=== PATIENT | male | born 1955 | race Caucasian/White ===

== ENCOUNTER 2018-04-22 08:18 | Outpatient (REF) | payer BC, SELFPAY ==
[2018-04-22 21:34] LABS: Anion Gap 9.5 mmol/L (3-11); BUN 17 mg/dL (7-18); CO2 26.5 mmol/L (21.0-32.0); Calcium 8.6 mg/dL (8.5-10.1); Chloride 106 mmol/L (98-107); Glucose 98 mg/dL (70-100); Potassium 4.2 mmol/L (3.5-5.1); Sodium 142 mmol/L (136-145)
== END 2018-04-22 08:19 ==
LOC: NCHCN 08:18
PROVIDERS: PCP Internal Medicine; Visit Provider Internal Medicine
DX: Z00.00 Encounter for general adult medical examination without abnormal findings (principal); R26.89 Other abnormalities of gait and mobility; H93.19 Tinnitus, unspecified ear; Z12.5 Encounter for screening for malignant neoplasm of prostate; Z80.42 Family history of malignant neoplasm of prostate
CPT/HCPCS: 80048; 84153

== ENCOUNTER 2020-07-12 20:01 | Outpatient (REF) | payer MEDICARE, BC, SELFPAY ==
[2020-07-12 21:26] LABS: ALT 23 U/L (16-63); AST 18 U/L (15-37); Albumin 4.1 g/dL (3.4-5.0); Alkaline Phosphatase 47 U/L (46-116); Anion Gap 9.5 mmol/L (3-11); BUN 16 mg/dL (7-18); Bilirubin, Total 0.6 mg/dL (0.2-1.0); CO2 25.5 mmol/L (21.0-32.0); CREATININE 1.31 mg/dL (0.70-1.30); Calcium 9.3 mg/dL (8.5-10.1); Calculated LDL 125 mg/dL (<100); Chloride 104 mmol/L (98-107); Cholesterol 184 mg/dL (<200); Estimated GFR 54.58 (mL/min/1.73m2); Glucose 104 mg/dL (74-106); HDL Cholesterol 38 mg/dL (40-60); Potassium 4.5 mmol/L (3.5-5.1); Sodium 139 mmol/L (136-145); Total Protein 7.3 g/dL (6.4-8.2); Triglyceride 107 mg/dL (<150)
== END 2020-07-12 20:21 ==
LOC: NCHCN 20:01
PROVIDERS: PCP Internal Medicine; Visit Provider Internal Medicine
DX: E78.5 Hyperlipidemia, unspecified (principal); E66.9 Obesity, unspecified
CPT/HCPCS: 80053; 80061

== ENCOUNTER 2021-06-30 15:55 | Outpatient (REF) | payer MEDICARE, BC, SELFPAY ==
[2021-06-30 17:42] LABS: Anion Gap 9.9 mmol/L (3-11); BUN 21 mg/dL (7-18); CO2 28.1 mmol/L (21.0-32.0); CREATININE 1.3 mg/dL (0.70-1.30); Calcium 9.4 mg/dL (8.5-10.1); Calculated LDL 125 mg/dL (<100); Chloride 105 mmol/L (98-107); Cholesterol 182 mg/dL (<200); Glucose 106 mg/dL (74-106); HDL Cholesterol 43 mg/dL (40-60); Potassium 4.3 mmol/L (3.5-5.1); Sodium 143 mmol/L (136-145); Triglyceride 73 mg/dL (<150)
[2021-07-03 09:32] LABS: PSA, Screening 1.9 ng/mL (0.0-4.5)
== END 2021-06-30 15:56 | disposition home or self-care (01) ==
LOC: NCHCN 15:55
PROVIDERS: PCP Internal Medicine; Visit Provider Internal Medicine
DX: E78.5 Hyperlipidemia, unspecified (principal); E66.9 Obesity, unspecified; Z12.5 Encounter for screening for malignant neoplasm of prostate
CPT/HCPCS: 80048; 80061; 84153

== ENCOUNTER 2022-01-01 09:17 | Outpatient (REF) | payer MEDICARE, SELFPAY ==
[2022-01-01 17:11] LABS: Calculated LDL 74 mg/dL (<100); Cholesterol 124 mg/dL (<200); Glucose 115 mg/dL (74-106); HDL Cholesterol 38 mg/dL (40-60); Triglyceride 60 mg/dL (<150)
== END 2022-01-01 09:18 | disposition home or self-care (01) ==
LOC: NCHCN 09:17
PROVIDERS: PCP Internal Medicine; Visit Provider Internal Medicine
DX: E78.5 Hyperlipidemia, unspecified (principal); R73.01 Impaired fasting glucose
CPT/HCPCS: 80061; 82947

== ENCOUNTER 2022-07-06 15:55 | Outpatient (REF) | payer MEDICARE, SELFPAY ==
[2022-07-06 16:37] LABS: BUN 16 mg/dL (7-18); CREATININE 1.3 mg/dL (0.70-1.30); Calcium 9.4 mg/dL (8.5-10.1); Chloride 105 mmol/L (98-107); Estimated GFR 59.47 (mL/min/1.73m2); Glucose 119 mg/dL (74-106); Potassium 4.5 mmol/L (3.5-5.1); Sodium 142 mmol/L (136-145)
== END 2022-07-06 15:56 | disposition home or self-care (01) ==
LOC: NCHCN 15:55
PROVIDERS: PCP Internal Medicine; Visit Provider Internal Medicine
DX: E78.5 Hyperlipidemia, unspecified (principal); E66.9 Obesity, unspecified; R73.01 Impaired fasting glucose; G47.33 Obstructive sleep apnea (adult) (pediatric)
CPT/HCPCS: 80048

== ENCOUNTER 2023-07-15 11:37 | Outpatient (REF) | payer MEDICARE, SELFPAY ==
[2023-07-15 16:00] LABS: ALT 25 U/L (16-63); AST 25 U/L (15-37); Alkaline Phosphatase 46 U/L (46-116); Anion Gap 8.6 mmol/L (3-11); BUN 19 mg/dL (7-18); Bilirubin, Total 0.7 mg/dL (0.2-1.0); CO2 26.4 mmol/L (21.0-32.0); CREATININE 1.1 mg/dL (0.70-1.30); Calcium 9.3 mg/dL (8.5-10.1); Calculated LDL 63 mg/dL (<100); Chloride 107 mmol/L (98-107); Cholesterol 116 mg/dL (<200); Estimated GFR 72.22 (mL/min/1.73m2); Glucose 113 mg/dL (74-106); HDL Cholesterol 39 mg/dL (40-60); Potassium 4.5 mmol/L (3.5-5.1); Sodium 142 mmol/L (136-145); Total Protein 7.5 g/dL (6.4-8.2); Triglyceride 71 mg/dL (<150)
[2023-07-15 16:26] LABS: Hemoglobin A1C 5.8 % (<5.7)
[2023-07-15 22:23] LABS: PSA, Screening 1.7 ng/mL (<=6.5)
== END 2023-07-15 11:38 | disposition home or self-care (01) ==
LOC: NCHCN 11:37
PROVIDERS: PCP Internal Medicine; Visit Provider Internal Medicine
DX: E66.9 Obesity, unspecified (principal); R73.01 Impaired fasting glucose; E78.5 Hyperlipidemia, unspecified; Z12.5 Encounter for screening for malignant neoplasm of prostate
CPT/HCPCS: 80053; 80061; 84153; 83036

== ENCOUNTER 2024-07-20 09:50 | Outpatient (REF) | payer MEDICARE, SELFPAY ==
--- OUTSIDE RECORDS SUMMARY | 2024-07-20 09:52 | XMS_ITS | Clinical Summary ---
[place] [address] Care Team Providers Care Drum Printer Name Role Phone Unknown Primary Care Provider Unavailabl e Encounters Date Type Department Care Team Description 06/04/[address] [facility] in [address] [address] Norberto Velasco PA from Last 3 Months Social History Tobacco Use Types Packs/Day Years Used Date Smoking Tobacco: Never Assessed Sex and Gender Information Value Date Recorded Sex Assigned at Not on file Gender Identity Not on file Sexual Orientation Not on file Plan of Treatment Health Maintenance Due Date Last Done Comments CT Colonography 1955 Colonoscopy 1955 Colorectal Cancer Screening 1955 FIT DNA 1955 FIT 1955 Sigmoidoscopy (10 year) with FIT yearly 1955 Sigmoidoscopy 1955 Hepatitis C Screening 1971 Lipid Screening 1971 Tetanus/Diphtheria/Pertussis Vaccines (1 - Tdap) 05/29 Zoster vaccine (1 of 2) 2003 Advance Directive 2008 Pneumoccocal Vaccine: 65+ (1 of 1 - PCV) 2018 Covid-19 Vaccine (1 - 2022-24 season) 2024 Influenza (Flu) vaccine (1 o f 1 - Influenza standard series) 05/17/2024 Procedures Procedure Name Priority Date/Time Associated Diagnosis Comments XR KNEE 4 OR MORE VIEWS RIGHT Routine 06/04/2024 9:39 AM EDT from Last 3 Months Results * XR Knee 4 or more views Right (06/04/2024 9:39 AM EDT) PT CLASS O DH RAD ADMITDTTM [id number] [facility] PT RAD MD INFO [id number]^BETINA^ NORBERTO RAD EXAM DESC XKN4R^XR KNEE 4V RT^RIS [facility] WORKSTATION ID [id number] [facility] Anatomical Region Laterality Modality Knee Right Radiographic Li ging Impressions 06/05/2024 9:34 AM EDT Early osteoarthritis. Thank you for letting us participate in the care of this patient. ??If you are a health care provider and have any questions regarding this report, please contact the number below. ??For patients who have questions please contact the health rn primary care that requested your imaging first. ? Narrative 06/05/2024 9:34 AM EDT EXAMINATION: XR KNEE 4V RT CLINICAL HISTORY: REASON: KNEE PAIN, RIGHT ADD'L INFO: WB TECHNIQUE: 4 views RIGHT knee COMPARISON: None FINDINGS: No acute osseous finding. No significant soft tissue abnormality. There is minimal joint space narrowing with small marginal osteophytes. Procedure Note Clovis Angulo MD - 06/05/2024 EXAMINATION: XR KNEE 4V RT CLINICAL HISTORY: REASON: KNEE PAIN, RIGHT ADD'L INFO: WB TECHNIQUE: 4 views RIGHT knee COMPARISON: None FINDINGS: No acute osseous finding. No significant soft tissue abnormality. There is minimal joint space narrowing with small marginal osteophytes. IMPRESSION Early osteoarthritis. Thank you for letting us participate in the care of this patient. If youare a health care provider and have any questions regarding this report,please contact the number below. For patients who have questions please contactthe health rn primary care that requested your imaging first. Norberto HARTMAN IMG DX ORDERABLES from Last 3 Months Care Teams Drum Printer Relationship Specialty Start Date End Date Unknown None PCP - General 08/08/10
--- OUTSIDE RECORDS SUMMARY | 2024-07-20 09:52 | XMS_ITS ---
Author Organization Unknown Address [address] [place] [phone] Phone Care Team Providers Care Prescription Eyeglass Maker Name Role Phone BETINA THORNTON Attending Unavailable LAZARO Leos Primary Unavailable Results XR KNEE 4V RT* - Completed: 06/04/2024 09:39 LOINC: [facility] [place], [place] [address] RADIOLOGY OPTICAL EFFECTS LAYOUT PERSON REPORT Patient Name: PIPO VARNER MRN: Sex: : Age: [id number] M [id number] Account: Accession: Admit: StayType: [id number] 06/04/2024 O Ordered: Order ID: Submitted: Ordering Provider: 06/04/2024 09:31 [id number] NORBERTO MOFFETT Completed: Technologist: Resulted: 06/04/2024 09:34 06/05/2024 09:34 EXAMINATION: XR KNEE 4V RT CLINICAL HISTORY: REASON: KNEE PAIN, RIGHT ADD'L INFO: WB TECHNIQUE: 4 views RIGHT knee COMPARISON: None FINDINGS: No acute osseous finding. No significant soft tissue abnormality. There is minimal joint space narrowing with small marginal osteophytes. IMPRESSION: Early osteoarthritis. Thank you for letting us participate in the care of this patient. If you are a health care provider and have any questions regarding this report, please contact the number below. For patients who have questions please contact the health manager primary care that requested your imaging first. Social History Type Status Start Date End Date Code Code Syst em Smoking History Never smoker (Never Smoked) [id number] SNOMED CT Sex Male Hospital Discharge Instructions Should you have any questions prior to discharge, please contact a member of your healthcare team. If you have left the hospital and have any questions, please contact your primary care physician. Reason For Referral No Data Found Plan of Treatment No Data Found Encounters Encounter Diagnosis Start Date Code Code Sys tem Idiopathic osteoarthritis 06/04/2024 [id number] SN OMED-CT Personal Care Team Section Performer Name Performer Role Active Date Inactive Da te
--- OUTSIDE RECORDS SUMMARY | 2024-07-20 09:52 | XMS_ITS ---
Author Organization Unknown Address [address] [place] [phone] Phone Care Team Providers Care Psychodramatist Name Role Phone ERI Dinh Attending Unavailable FRANCI Hilario Primary Unavailable Results XR KNEE 4V LT* - Completed: 04/23/2023 13:15 [facility] [place], [place] [address] PACS MOLECULAR BIOLOGY PROFESSOR REPORT Patient Name: PIPO VARNER MRN: Sex: : Age: [id number] M [id number] Account: Accession: Admit: StayType: [id number] 04/23/2023 CLINIC Ordered: Order ID: Submitted: Ordering Provider: 04/23/2023 08:45 [id number] LA PAREKH Completed: Technologist: Resulted: 04/23/2023 13:15 BUSTER 04/23/2023 13:50 Study Description: XR KNEE 4V LT Study Reason: Pain Technique: 2D digital imaging was performed. 4 images were obtained. COMPARISON: None FINDINGS: Bones: No acute fractures present. No bony destructive lesion is seen. Joints: No dislocation is present. No joint effusion is seen. The joint spaces are maintained. There is mild periarticular spurring. Soft tissues: Unremarkable. IMPRESSION: No acute abnormality. Mild degenerative changes Report Digitally Signed by Alycia John on 04/23/2023 01:50 PM EDT Social History Type Status Start Date End Date Code Code Syst em Smoking History Never smoker (Never Smoked) [id number] SNOMED CT Sex Male Hospital Discharge Instructions Should you have any questions prior to discharge, please contact a member of your healthcare team. If you have left the hospital and have any questions, please contact your primary care physician. Reason For Referral No Data Found Plan of Treatment No Data Found Encounters Encounter Diagnosis Start Date Code Code Sys tem Idiopathic osteoarthritis 04/23/2023 [id number] SN OMED-CT Personal Care Team Section Performer Name Performer Role Active Date Inactive Da te
--- OUTSIDE RECORDS SUMMARY | 2024-07-20 09:52 | XMS_ITS | Encounter Summary ---
Author Organization [facility] [place] [address] Care Team Providers Care Washing Tub Operator Name Role Phone Unknown Primary Care Provider Unavailabl e Encounter Details Date Type Department Care Team (Late st Contact Info) Description 06/04/2024 Interpretation Only [facility] in [facility] [address] [place] [address] Norberto Velasco PA [address] [place], [place] [address] Social History Tobacco Use Types Packs/Day Years Used Date Smoking Tobacco: Never Assessed Sex and Gender Information Value Date Recorded Sex Assigned at Not on file Gender Identity Not on file Sexual Orientation Not on file documented as of this encounter Plan of Treatment Not on file documented as of this encounter Procedures Procedure Name Priority Date/Time Associated Diagnosis Comments XR KNEE 4 OR MORE VIEWS RIGHT Routine 06/04/2024 9:39 AM EDT documented in this encounter Results * XR Knee 4 or more views Right (06/04/2024 9:39 AM EDT) PT CLASS O RAD ADMITDTTM [id number] RAD PT RAD MD INFO [id number]^BETINA^ NORBERTO RAD EXAM DESC XKN4R^XR KNEE 4V RT^RIS [facility] WORKSTATION ID [id number] RAD Anatomical Region Laterality Modality Knee Right Radiographic Li ging Impressions 06/05/2024 9:34 AM EDT Early osteoarthritis. Thank you for letting us participate in the care of this patient. ??If you are a health care provider and have any questions regarding this report, please contact the number below. ??For patients who have questions please contact the health career technical education teacher that requested your imaging first. ? Electronically signed by: Clovis Angulo MD, [facility] ([phone]), at 06/05/2024 9:34 AM Narrative 06/05/2024 9:34 AM EDT EXAMINATION: XR [...] patients who have questions please contactthe health career technical education teacher that requested your imaging first. Electronically signed by: Clovis Angulo MD, [facility]([phone]), at 06/05/2024 9:34 AM Norberto Betina HARTMAN IMVern DX ORDERABLES documented in this encounter Visit Diagnoses Not on filedocumented in this encounter Care Teams Washing Tub Operator Relationship Specialty Start Date End Date Unknown None PCP - General 08/08/10 documented as of this encounter
--- OUTSIDE RECORDS SUMMARY | 2024-07-20 09:52 | XMS_ITS | Clinical Summary ---
Author Organization [facility] Address [address] [place] [address] Care Team Providers Care Superintendent Seed Mill Name Role Phone Linda Do Primary Care Provider [phone] Allergies No known active allergies Medications Medication Sig Dispensed Refills Start Date End Date Status tadalafiL (CIALIS) 5 mg tablet Take 5 mg by mouth daily. Active TAMSulosin (FLOMAX) 0.4 mg capsuleIndications:roxanna gn prostatic hyperplasia with lower urinary tract sx Take 0.4 mg by mouth daily. Active pravastatin (PRAVACHOL) 40 mg tabletIndications:hyper cholesterolemia Take 40 mg by mouth daily. Active Active Problems Problem Noted Date Diagnosed Date Asymmetrical left sensorineural hearing loss Encounters Date Type Department Care Team Description 05/08/2024 7:39 EDT - 05/08/2024 12:47 EDT Emergency [facility] Emergency Department [address] [place] [address] Elliott Mancuso MD Acute pain of right knee (Primary Dx) Discharge Disposition: Home or Self Care from Last 3 Months Surgical History Surgery Date Site/Laterality Comments CHOLECYSTECTOMY PILONIDAL CYST EXCISION 09/16/1976 - 09/15/1977 Medical History Medical History Date Comments Colon polyp Family History Medical History Relation Comments Heart Disease Father Heart Disease Maternal Grandmother Heart Disease Mother Relation Status Comments Father Maternal Grandmother Mother Social History Tobacco Use Types Packs/Day Years Used Date Smoking Tobacco: Former Cigarettes 0.5 5 0 10/12/1970 - 10/12/1975 Tobacco Cessation:Counseling Given: Not Answered Alcohol Use Standard Drinks/Week Comments No 0 (1 standard drink = 0.6 oz pur e alcohol) Sex and Gender Information Value Date Recorded Sex Assigned at Not on file Gender Identity Male 07/16/2022 15:14 EDT Sexual Orientation Not on file Obstetrics History Last Filed Vital Signs Vital Sign Reading Time Taken Comments Blood Pressure 133/93 05/08/2024 1224 EDT Pulse 54 05/08/2024 0744 EDT Temperature 36.8 ??C (98.3 ??F) 05/08/2024 0952 EDT Respiratory Rate 16 05/08/2024 1224 EDT Oxygen Saturation 98% 05/08/2024 1224 EDT Inhaled Oxygen Concentration - - Weight 123.8 kg (273 lb) 08/15/2022 0958 EST Height 170.2 cm (5' 7) 08/15/2022 0958 EST Body Mass Index 42.76 08/15/2022 0958 EST Plan of Treatment Health Maintenance Due Date Last Done Comments Hepatitis C Screen 1955 RSV Immunization ( o r 60+ Years) (1 - 1-dose 60+ series) 2013 Fall Risk Screening 2018 COVID-19 Vaccine (2022- season) 2024 Colonoscopy (Colon Cancer Screening) Discontinued 07/19 Colorectal Cancer Screening Discontinued Cologuard (Colon Cancer Screening) Discontinued FIT Test (Colon Cancer Screening) Discontinued Sigmoidoscopy (Colon Cancer Screening) Discontinued Procedures Procedure Name Priority Date/Time Associated Diagnosis Comments ANAPLASMA AND BABESIA TESTING BY PCR Routine 05/08/2024 9:46 EDT XR KNEE RIGHT 4 OR MORE VIEWS STAT 05/08/2024 8:55 EDT LYME AB SCREEN, IGG AND IGM STAT 05/08/2024 8:31 EDT C REACTIVE PROTEIN STAT 05/08/2024 8: 31 EDT COMPREHENSIVE METABOLIC PANEL (CMP) STAT 05/08/2024 8:31 EDT COMPLETE BLOOD COUNT AND DIFFERENTIAL STAT 05/08/2024 8:31 EDT COLONOSCOPY Routine 08/15/2022 10:30 EST Personal history of colonic polyps from Last 3 Months or Most Recently Relevant to Health Maintenance Results * ANAPLASMA AND BABESIA TESTING BY PCR (05/08/2024 9:46 EDT) Anaplasma phagocytophilum Negative Negative 05/09/2024 11:16 EDT [facility] Babesia Species Negative Negative 11:16 EDT [facility] Blood VENOUS BLOOD / Unknown Venipuncture / Unknown 05/08/2024 9:46 EDT 05/08/2024 9:49 EDT Narrative [facility] - 05/09/2024 11:16 EDT This test was developed and its performance characteristics determined by [facility]. It has not been cleared or approved by the US Food and Drug Administration. FDA does not require this test to go through premarket FDA review. This test is used for clinical purposes. It should not be regarded as investigational or research. This laboratory is certified under the Clinical Laboratory Improvement Amendments (CLIA) as qualified to perform high complexity clinical laboratory testing. Elliott Mancuso MD CHEMISTRY & BLOOD GA S ORDERABLES [facility] [address] [place] [address] * XR KNEE RIGHT 4 OR MORE VIEWS (05/08/2024 8:55 EDT) Anatomical Region Laterality Modality Lower Extremities Right Computed Radio graphy 05/08/2024 9:06 EDT Impressions 05/08/2024 9:06 EDT 1. No acute fracture. 2. Mild knee arthrosis. 3. Findings of prior [place]-Schlatter's disease. [id number] Narrative 05/08/2024 9:06 EDT XR KNEE RIGHT 4 OR MORE VIEWS ?? Signs and Symptoms/Comments: ??right knee pain Comparison: None FINDINGS: Right knee: 4 views. Bones: No acute fracture or malalignment. Degenerative changes: Mild narrowing of the medial tibiofemoral compartment joint space. Suspect mild patellofemoral narrowing. Chronic irregularity of the tibial tuberosity, compatible with remote [place]-Schlatter's disease. No significant knee joint effusion. Soft tissues: Unremarkable. Resulting Agency Comment [id number] Procedure Note Chester Rodríguez MD - 05/08/2024 XR KNEE RIGHT 4 OR MORE VIEWS Signs and Symptoms/Comments: right knee pain Comparison: None FINDINGS: Right knee: 4 views. Bones: No acute fracture or malalignment. Degenerative changes: Mild narrowing of the medial tibiofemoralcompartment joint space. Suspect mild patellofemoral narrowing. Chronicirregularity of the tibial tuberosity, compatible with remote[place]sg[place]-Schlatter's disease. No significant knee joint effusion. Soft tissues: Unremarkable. IMPRESSION 1. No acute fracture. 2. Mild knee arthrosis. 3. Findings of prior [place]-Schlatter's disease. [id number] Ana Pedraza NP IMG DIAGNOSTIC IMAG ING ORDERABLES * LYME AB SCREEN, IGG AND IGM (05/08/2024 8:31 EDT) Pathologist [facility] Lyme Antibody, IgG Negative Negative 05/08/2024 11:03 EDT [facility] Lyme Antibody, IgM Negative Negative 05/08/2024 11:03 EDT [facility] Blood VENOUS BLOOD / Unknown Venipuncture / Unknown 05/08/2024 8:31 EDT 05/08/2024 8:38 EDT Ana Pedraza NP IMMUNOLOGY AND SERO LOGY ORDERABLES [facility] [address] [place] [address] * (ABNORMAL) COMPLETE BLOOD COUNT AND DIFFERENTIAL (05/08/2024 8:31 EDT) Pathologist [facility] WBC 7.24 4.00 - 10.40 K/cmm 05/08/2024 8:49 EDT [facility] RBC 5.50 4.36 - 5.78 M/cmm 05/08/2024 8:49 [facility] Hemoglobin 15.3 13.8 - 17.3 g/dL 05/08/2024 8:49 [facility] HCT 46.8 39.5 - 50.2 % 05/08/2024 8:49 [facility] MCV 85 81 - 95 fL 05/08/2024 8:49 [facility] MCH 27.8 27.6 - 33.0 pg 05/08/2024 8:49 [facility] MCHC 32.7(L) 32.8 - 36.4 g/dL 05/08/2024 8:49 [facility] RDW-CV 13.6 <14.2 % 05/08/2024 8:49 [facility] RDW-SD 42.6 <46.0 fl 05/08/2024 8:49 [facility] PLT 217 141 - 377 K/cmm 05/08/2024 8:49 [facility] MPV 8.9(L) 9.5 - 12.7 fL 05/08/2024 8:49 [facility] % Neutrophils 71.1 % 05/08/2024 8:49 [facility] % Lymphocytes 19.6 % 05/08/2024 8:49 [facility] % Monocytes 7.2 % 05/08/2024 8:49 [facility] % Eosinophils 1.1 % 05/08/2024 8:49 [facility] % Basophils 0.7 % 05/08/2024 8:49 [facility] % Immature Grans 0.3 <0.9 % 05/08/20 8:49 [facility] Absolute Neutrophils 5.15 2.20 - 8.85 K/cmm 05/08/2024 8:49 [facility] Absolute Lymphocytes 1.42 1.09 - 3.30 K/cmm 05/08/2024 8:49 [facility] Absolute Monocytes 0.52 0.10 - 0.80 K/cmm 05/08/2024 8:49 [facility] Absolute Eosinophils 0.08 0.03 - 0.61 K/cmm 05/08/2024 8:49 [facility] ABS Basophils 0.05 0.01 - 0.11 K/cmm 05/08/2024 8:49 [facility] Absolute Immature Grans 0.02 0.00 - 0.06 K/cmm 05/08/2024 8:49 [facility] Type of Differential: Auto 05/08/2024 8:49 [facility] Blood VENOUS BLOOD / Unknown Venipuncture / Unknown 05/08/2024 8:31 EDT 05/08/2024 8:38 EDT Ana L Concettanoir TESTS SUPERINTENDENT PACKAGES & DNA PROB E ORDERABLES Performing Organization Address City/[facility]/ZIP Co de Phone Number [facility] [address] [place] [address] * C REACTIVE PROTEIN (05/08/2024 8:31 EDT) [facility] C-Reactive Protein 6.2 <10.0 mg/L 05/08/2024 9:08 [facility] Blood VENOUS BLOOD / Unknown Venipuncture / Unknown 05/08/2024 8:31 EDT 05/08/2024 8:38 EDT Ana L Cotnoir TESTS SUPERINTENDENT CHEMISTRY & BLOOD G ORDERABLES Performing Organization Address City/[facility]/ZIP Co de Phone Number [facility] [address] [place] [address] * (ABNORMAL) COMPREHENSIVE METABOLIC PANEL (CMP) (05/08/2024 8:31 EDT) Pathologist [facility] Sodium 141 136 - 145 mmol/L 05/08/2024 9:08 [facility] Potassium 4.6 3.5 - 5.0 mmol/L 05/08/2024 9:08 [facility] Chloride 107 96 - 110 mmol/L 05/08/2024 9:08 [facility] CO2 Total 25 22 - 32 mmol/L 05/08/2024 9:08 [facility] Glucose 126(H) 70 - 99 mg/dl 05/08/2024 9:08 [facility] BUN 17 10 - 26 mg/dL 05/08/2024 9:08 [facility] Creatinine 0.94 0.66 - 1.25 mg/dL 05/08/2024 9:08 [facility] eGFR 87 >60 mL/min/1.7 3m2 05/08/2024 9:08 [facility] Total Protein 6.7 6.3 - 8.2 g/dL 05/08/2024 9:08 [facility] Albumin 4.0 3.4 - 4.9 g/dL 05/08/2024 9:08 [facility] Alkaline Phosphatase 46 38 - 126 U/L 05/08/2024 9:08 [facility] AST 25 15 - 46 U/L 05/08/2024 9:08 [facility] ALT 17 <50 U/L 05/08/2024 9:08 [facility] Bilirubin, Total 0.6 <1.4 mg/dL 05/08/20 9:08 [facility] Calcium 9.1 8.5 - 10.5 mg/dL 05/08/2024 9:08 [facility] Albumin/Globulin Ratio 1.5 1.0 - 2.5 05/08/2024 9:08 [facility] Anion Gap 9 5 - 14 mmol/L 05/08/2024 9:08 [facility] Blood VENOUS BLOOD / Unknown Venipuncture / Unknown 05/08/2024 8:31 EDT 05/08/2024 8:38 EDT Ana Gorman Osmanrama TESTS SUPERINTENDENT CHEMISTRY & BLOOD G ORDERABLES [facility] [address] [place] [address] * COLONOSCOPY (08/15/2022 10:30 EST) Anatomical Region Laterality Modality Endoscopy Narrative 08/15/2022 10:30 EST [facility] ?? [address] [place] [address] ?? Patient Name ?GAGE VARNER Date of ?1955 Record Number ?[id number] Date/Time of Procedure ?08/15/2022, 10:30:00 AM Endoscopist ?Brenton Morgan ?? Collections Rep ? Referring Physician(s) ?? Max Carnes Dr. Anesthesiologist ? Procedure Performed: COLONOSCOPY Indications for Exam: History of colon polyps Instruments: ? [facility]-[id number] ([id number]) Medications: ?Fentanyl 75 mcg, Versed ??5 mg I was in continuous face to face attendance during the administration of moderate sedation services that were monitored by an independent trained observer who had no other duties during the procedure. ? Visualization: ? Good ?Tolerance: Good ?Complications: None ? Extent of Exam: ?Cecum ? Limitations: ?? Procedure Technique: Informed consent was obtained from the patient after explaining all the risks (perforation, bleeding, infection, and adverse effects to the medicine), benefits and alternatives to the procedure which the patient appeared to understand and so stated. ??The patient was connected to the monitoring devices and placed in a left lateral position. Continuous oxygen was provided with a nasal cannula and IV medicine administered through an indwelling cannula. After adequate sedation was achieved, the patient was intubated and the scope advanced under direct visualization to the terminal ileum. The terminal ileum was identified by visual landmarks .The scope was subsequently removed slowly while carefully examining the color, texture, anatomy, and integrity of the mucosa during withdrawal. I personally was in continuous [id number]-ab-qloa attendance with the patient during the administration of the moderate sedation and supervised the moderate sedation services that were monitored by an independent trained observer who had no other duties during the procedure. The patient was subsequently transferred to the recovery area in satisfactory condition. Findings: Normal colon to the Cecum. No polyps or cancer noted. Endoscopic Diagnosis: Normal screening colonoscopy Recommendations: Screening colonoscopy in 5 years. Sedation Start: 11:25:12 AM ?? Sedation End: 11:43:12 AM Signature: Brenton Morgan M.D., F.A.C.G This note was electronically signed on 08/15/2022 11:44:52 AM By Brenton Morgan M.D., Loida.A.CMakG Linda Do GI PROCEDURE ORDERAB LES from Last 3 Months or Most Recently Relevant to Health Maintenance Care Teams Superintendent Seed Mill Relationship Specialty Start Date End Date Linda Do [address] [facility] [place] [address] PCP - General Internal Medicine - Primary Care 05/08/24
--- OUTSIDE RECORDS SUMMARY | 2024-07-20 09:52 | XMS_ITS ---
Author Organization Unknown ALLERGIES AND ADVERSE REACTIONS No information ASSESSMENT No information CHIEF COMPLAINT No information MEDICATIONS No information OBJECTIVE DATA No information PHYSICAL EXAMINATION No information TREATMENT PLAN Planned Care Start Date Provider Encounter for Check-up [id number] PROBLEMS No information RESULTS No information REVIEW OF SYSTEMS No information SUBJECTIVE DATA No information VITAL SIGNS No information
--- OUTSIDE RECORDS SUMMARY | 2024-07-20 09:53 | XMS_ITS | Encounter Summary ---
Author Organization [facility] Address [address] [place] [address] Care Team Providers Care Hotel Supplies Salesperson Name Role Phone Max Carnes MD Primary Care Provider Unav ailable Reason for Visit * Reason Comments Tinnitus left side at times f eels like pressure. mild discomfort symptoms started with cold in the head of november cold symptoms disappared but tinnitus stayed was a sudden onset. * Consult (Routine) - Closed Specialty Diagnoses / Procedures Referred By Contjuan jose echavarria Referred To Contact Otolaryngology Diagnoses Unspecified eustachian tube disorder, bilateral Max Carnes MD [address] [place] [address] Terry Jung MD [address] [place] [phone] Referral ID Status Reason Start Date Expiration Date Visits Re quested Visits Authorized [id number] Closed 1 1 Encounter Details Date Type Department Care Team (Latest Contact Info) Description 01/10/2017 10:30 EDT Office Visit [facility] ENT [facility] [place] [address] [place] [address] Terry Jung MD [address] [place] [phone] Subjective tinnitus, left (Primary Dx); Asymmetrical left sensorineural hearing loss Social History Tobacco Use Types Packs/Day Years Used Date Smoking Tobacco: Former Cigarettes 0.5 5 0 10/12/1970 - 10/12/1975 Alcohol Use Standard Drinks/Week Comments No 0 (1 standard drink = 0.6 oz pur e alcohol) Sex and Gender Information Value Date Recorded Sex Assigned at Not on file Gender Identity Male 07/16/2022 15:14 EDT Sexual Orientation Not on file documented as of this encounter Last Filed Vital Signs Vital Sign Reading Time Taken Comments Blood Pressure 131/87 01/10/2017 1016 EDT Pulse 67 01/10/2017 1016 EDT Temperature - - Respiratory Rate - - Oxygen Saturation - - Inhaled Oxygen Concentration - - Weight 113.4 kg (250 lb) 01/10/2017 1016 EDT Height 175.3 cm (5' 9) 01/10/2017 1016 EDT Body Mass Index 36.92 01/10/2017 1016 EDT documented in this encounter Progress Notes * Terry Jung MD - 01/10/2017 1030 EDT This is a consult from Max Carnes MD, for evaluation of tinnitus. HISTORY OF PRESENT ILLNESS: This is a 61-year-old male with a history of bilateral tinnitus mainly on the left that began after a head cold in November. The cold resolved, but he continues to have tinnitus and feeling of pressure in the left ear. His symptoms are of mild severity, constant, no known modifying factors, has occasional popping and crackling of the left ear. No vertigo, pain, drainage or other ear symptoms. His symptoms are of mild severity. It does not affect sleep, no increased social stress. Denies bruxism. Caffeine use is one diet soda per day. PAST MEDICAL HISTORY: The patient denies other medical illnesses. PREVIOUS SURGERIES: Include cholecystectomy. FAMILY HISTORY: Significant for heart disease. SOCIAL HISTORY: The patient is a former smoker, quit in 1975. He has no known drug allergies. CURRENT MEDICATIONS: Include Cialis. REVIEW OF SYSTEMS: Otherwise negative for a complete review of all systems. PHYSICAL EXAM: General: Well-developed, well-nourished, alert, oriented and cooperative adult male in no acute distress. Normal voice. Vital signs: Height 69 inches. Weight 250. Blood pressure 131/87, pulse 67. No reportable pain. The face is normal without lesions. No tenderness. Salivary glands are normal. Facial strength is symmetric. Eye exam is normal. Ears: External ears are normal. Canals are clear. The tympanic membranes are normal. Normal bilateral otomicroscopy. An audiogram was performed which reveals a bilateral high- frequency sloping sensorineural hearing loss, slightly asymmetric, worse in the left ear. SRTs are 10 decibels bilaterally. Excellent word discrimination and normalimpedance. Nose: Nasal dorsum is midline, the airway is patent. Oral cavity and posterior pharynx is clear. Neck: No pathologic lymphadenopathy. Trachea is midline. Thyroid is normal. Chest is clear to auscultation. Heart: Regular rate and rhythm. IMPRESSION: Mild bilateral high-frequency sensorineural hearing loss, asymmetric, worse in the leftear with associated tinnitus, possibly related to a viral respiratory tract infection, Cialis has also been associated with sudden hearing loss and tinnitus. PLAN: Tinnitus instruction materials were given to the patient and discussed in detail. For the asymmetric sensorineural hearing loss, further workup including repeat audiogram, audiometric brainstemevoked potential testing, and MRI scan were discussed with the patient. He has opted for a repeat audiogram and this will be scheduled in 1 year or p.r.n. cc: Max Carnes MD documented in this encounter Plan of Treatment Not on file documented as of this encounter Procedures Procedure Name Priority Date/Time Associated Diagnosis Comments PROCEDURE REPORTS - SCANNED 01/11/2017 15:21 EDT documented in this encounter Results * PROCEDURE REPORTS - SCANNED (01/11/2017 15:21 EDT) 01/11/2017 15:2 1 EDT Scan 2 Sewage Plant Operator PROCEDURE/MINOR GUERITA GICAL ORDERABLES documented in this encounter Visit Diagnoses Diagnosis Subjective tinnitus, left- Primary Asymmetrical left sensorineural hearing loss Sensorineural hearing loss, asymmetrical documented in this encounter Care Teams Hotel Supplies Salesperson Relationship Specialty Start Date End Date Max Carnes MD PCP - General 07/26/15 05/07/24 documented as of this encounter
--- OUTSIDE RECORDS SUMMARY | 2024-07-20 09:53 | XMS_ITS | Encounter Summary ---
Author Organization [facility] Address [address] [place] [address] Care Team Providers Care Superintendent Renting Managing Name Role Phone Max Carnes MD Primary Care Provider Unav ailable Reason for Referral * Referral (Routine/Next Available) - Receiving Office to Obtain Authorization Specialty Diagnoses / Procedures Referred By Rishabh echavarria Referred To Contact Diagnoses Personal history of colonic polyps Procedures COLONOSCOPY Linda Do [address] [place] [id number] Referral ID Status Reason Start Date Expiration Date Visits Requested Visits Authorized [id number] Receiving Office to Obtain Authorization 01/10/2022 1 1 Reason for Visit * Auth/Cert (Routine) Specialty Diagnoses / Procedures Referred By Rishabh echavarria Referred To Contact Referral ID Status Reason Start Date Expiration Date Visits Re quested Visits Authorized [id number] 1 1 Encounter Details Date Type Department Care Team (Latest Contact Info) Description 08/15/2022 9:23 EST - 08/15/2022 23:59 EST Hospital Encounter [facility] [address] [place] [address] Brenton Morgan MD [facility] [address] [place] [address] Personal history of colonic polyps Discharge Disposition: Home or Self Care Social History Tobacco Use Types Packs/Day Years [...] Sign Reading Time Taken Comments Blood Pressure 111/69 08/15/2022 1200 EST Pulse - - Temperature 36.6 ??C (97.9 ??F) 08/15/2022 0958 EST Respiratory Rate 14 08/15/2022 1200 EST Oxygen Saturation 95% 08/15/2022 1200 EST Inhaled Oxygen Concentration - - Weight 123.8 kg (273 lb) 08/15/2022 0958 EST Height 170.2 cm (5' 7) 08/15/2022 0958 EST Body Mass Index 42.76 08/15/2022 0958 EST documented in this encounter Medications at Time of Discharge Medication Sig Dispensed Refills Start Date End Date pravastatin (PRAVACHOL) 40 mg tabletIndications:hyperchol esterolemia Take 40 mg by mouth daily. tadalafiL (CIALIS) 5 mg tablet Take 5 mg by mouth daily. TAMSulosin (FLOMAX) 0.4 mg capsuleIndications:benign prostatic hyperplasia with lower urinary tract sx Take 0.4 mg by mouth daily. documented as of this encounter Discharge Disposition Disposition Code Departure Means Destination Home or Self [facility] documented in this encounter H&P Notes * Brenton Morgan MD - 08/15/2022 1030 EST Endoscopy Sedation for Procedure History & Physical Date: 08/15/2022 Time: 11:27 Location: [facility] Endoscopy Planned Procedure: Colonoscopy Chief Complaint/Indications for Procedure: Personal history of colonic polyps History Previous Complication with Sedation and/or Anesthesia? No Allergies: No Known Allergies Current Medications: Current Outpatient Medications Medication ??? pravastatin (PRAVACHOL) 40 mg tablet ??? tadalafiL (CIALIS) 5 mg tablet ??? TAMSulosin (FLOMAX) 0.4 mg capsule Current Facility-Administered Medications Medication Route Frequency ??? fentaNYL citrate (PF) injection intravenous PRN ??? sodium chloride 0.9 % (NS) infusion intravenous PRN Or ??? lactated ringers (LR) infusion intravenous PRN ??? midazolam (VERSED) injection intravenous PRN ??? ondansetron (PF) (ZOFRAN) injection 4 mg intravenous PRN ??? sodium chloride 0.9 % (flush) flush 3 mL intravenous PRN ??? sodium chloride 0.9 % (flush) flush 5 mL intravenous Q8H Past Medical History: Past Medical History: Diagnosis Date ??? Colon polyp Social History: Past Surgical History: Procedure Laterality Date ??? CHOLECYSTECTOMY ??? PILONIDAL CYST EXCISION 1976 Social History Tobacco Use ??? Smoking status: Former Packs/day: 0.50 Years: 5.00 Pack years: 2.50 Types: Cigarettes Quit date: 10/12/1975 Years since quittin.8 ??? Smokeless tobacco: Not on file Substance Use Topics ??? Alcohol use: No Family History: Family History Problem Relation Age of Onset ??? Heart Disease Mother ??? Heart Disease Father ??? Heart Disease Maternal Grandmother Review of Systems as pertinent: Physical Exam Vital Signs: BP (!) 156/81 Temp 36.6 ??C (97.9 ??F) (Oral) Resp 16 Ht 170.2 cm (67) Wt (!)123.8 kg (273 lb) SpO2 96% BMI 42.76 kg/m?? Heart Examination: Cardiac Regularity: Regular Respiratory Examination: Respiratory Pattern: Regular Breath Sounds Right: Clear Breath Sounds Left: Clear Abdominal Examination: Soft, non-tender, bowel sounds normal, no masses, no organomegaly Additional physical exam related to the proposed procedure, patient activity, disease state and treatment as pertinent: Assessment Previous complications with sedation or anesthesia?: No Airway Concerns: None/NA Anesthesia Classification: ASA 1 Plan: Proceed with sedation for procedure Fasting Time: Date of Last Liquid: 08/15/22 Time of Last Liquid: 0715 Date of Last Solid: 08/14/22 Time of Last Solid: 0800 Patient Appropriate Candidate for Planned Sedation?: Yes Brenton Morgan MD 08/15/2022 11:27 documented in this encounter Plan of Treatment Not on file documented as of this encounter Procedures Procedure Name Priority Date/Time Associated Diagnosis Comments ECG REPORT - SCANNED 08/16/2022 13:42 EST COLONOSCOPY Routine 08/15/2022 10:30 EST Personal history of colonic polyps documented in this encounter Results * ECG REPORT - SCANNED (08/16/2022 13:42 EST) 08/16/2022 13:4 2 EST Scan 2 Interventional Neuroradiologist PROCEDURE/MINOR GUERITA GICAL ORDERABLES * COLONOSCOPY (08/15/2022 10:30 EST) Anatomical Region Laterality Modality Endoscopy Narrative 08/15/2022 10:[address] [facility] ?? [address], [place], [place] [address] ?? Patient Name ?PIPO VARNER Date of ?1955 Record Number ?[id number] Date/Time of Procedure ?08/15/2022, 10:30:00 AM Endoscopist ?Brenton Morgan ?? Denial Management Representative ? Referring Physician(s) ?? Max Carnes Dr. Anesthesiologist ? Procedure Performed: COLONOSCOPY Indications for Exam: History of colon polyps Instruments: ? [id number] ([id number]) Medications: ?Fentanyl 75 mcg, Versed ??5 mg [...] during withdrawal. I personally was in continuous [id number] attendance with the patient during the administration [...] 08/15/2022 11:44:52 AM By Brenton Morgan M.D., F.A.C.G Linda Do GI PROCEDURE ORDERAB LES documented in this encounter Visit Diagnoses Diagnosis Personal history of colonic polyps documented in this encounter Administered Medications Inactive Administered Medications - up to 3 most recent administrations Medication Order MAR Action Action Date Dose Rate Site fentaNYL citrate (PF) injection intravenous, As needed, Starting on Sat08/15/22 at 1126, Until Sat08/15/22 at 1144, Routine, Intraprocedure Given 08/15/2022 11:29 EST 25 mcg Given 08/15/2022 11:26 EST 50 mcg midazolam (VERSED) injection intravenous, As needed, Starting on Sat08/15/22 at 1126, Until Sat08/15/22 at 1144, Routine, Intraprocedure Given 08/15/2022 11:32 EST 1 mg Given 08/15/2022 11:29 EST 2 mg Given 08/15/2022 11:26 EST 2 mg simethicone 0.33 mg/mL in 200 mL water As needed, Starting on Sat08/15/22 at 1134, Until Sat08/15/22 at 1144, Routine, Intraprocedure Given 08/15/2022 11:34 EST 200 mL documented in this encounter Historical Medications * This list may reflect changes made after this encounter. Medication Sig Dispensed Refills Start Date End Date pravastatin (PRAVACHOL) 40 mg tabletIndications:hyperchol esterolemia Take 40 mg by mouth daily. TAMSulosin (FLOMAX) 0.4 mg capsuleIndications:benign prostatic hyperplasia with lower urinary tract sx Take 0.4 mg by mouth daily. added in this encounter Orders Medications Ordered That Grey ht Not Have Been Administered Count Last Ordered Date First Ordered Date lactated ringers (LR) infusion 1 08/15/2022 ondansetron (PF) (ZOFRAN) injection 4 mg 1 08/15/2022 sodium chloride 0.9 % (flush) flush 3 mL 1 08/15/2022 sodium chloride 0.9 % (flush) flush 5 mL 1 08/15/2022 sodium chloride 0.9 % (NS) infusion 1 08/15 Discharge Count Last Ordered Date First Orde red Date DISCHARGE PATIENT 1 08/15/2022 documented in this encounter Care Teams Superintendent Renting Managing Relationship Specialty Start Date End Date Max Carnes MD PCP - General 07/26/15 05/07/24 documented as of this encounter
--- OUTSIDE RECORDS SUMMARY | 2024-07-20 09:53 | XMS_ITS | Encounter Summary ---
Author Organization [facility] Address [address] [place] [address] Care Team Providers Care Vehicle Service Agent Name Role Phone Max Carnes MD Primary Care Provider Unav ailable Encounter Details Date Type Department Care Team (Late st Contact Info) Description 08/15/2022 Prep for Procedure [facility] Endoscopy [address] [place] [address] Brenton Morgan MD [facility] [address] [place] [address] Social History Tobacco Use Types Packs/Day Years [...] on file documented as of this encounter Visit Diagnoses Not on filedocumented in this encounter Care Teams Vehicle Service Agent Relationship Specialty Start Date End Date Max Carnes MD PCP - General 07/26/15 05/07/24 documented as of this encounter
--- OUTSIDE RECORDS SUMMARY | 2024-07-20 09:53 | XMS_ITS | Encounter Summary ---
Author Organization [facility] Address [address] [place] [address] Care Team Providers Care Conformal Pad Former Name Role Phone Max Carnes MD Primary Care Provider Linda Bartholomew Primary Care Provider [phone] Encounter Details Date Type Department Care Team (Late st Contact Info) Description 07/15/2023 Lab Requisition [facility] Pathology & Laboratory Medicine - [address] [address] Outr Resulting Lab, Provider Social History Tobacco Use Types Packs/Day Years [...] Procedure Name Priority Date/Time Associated Diagnosis Comments PSA TOTAL, DIAGNOSTIC Routine 07/15/2023 8:00 EDT documented in this encounter Results * PSA TOTAL, DIAGNOSTIC (07/15/2023 8:00 EDT) PSA 1.7 <=6.5 ng/mL 07/15/2023 22:18 EDT [facility] Blood VENOUS BLOOD / Unknown 07/15/2023 8:00 EDT 07/15/2023 21:26 EDT Narrative [facility] - 07/15/2023 22:18 EDT NOTE: Serum PSA concentration should not be interpreted as absolute evidence for the presence or absence of malignant disease. Assayed on Siemens ADVIA TVbeataur XPT using chemiluminescent technology.??Values obtained by using different assay methods cannot be used interchangeably. Provider Outr Resulting Lab CHEMISTRY & BLOOD GAS ORDERABLES [facility] [address] [place] [address] documented in this encounter Visit Diagnoses Not on filedocumented in this encounter Care Teams Conformal Pad Former Relationship Specialty Start Date End Date Max Carnes MD PCP - General 07/26/15 05/07/24 Linda Do [address] [place] [address] PCP - General Internal Medicine - Primary Care 05/08/24 documented as of this encounter
--- OUTSIDE RECORDS SUMMARY | 2024-07-20 09:53 | XMS_ITS | Encounter Summary ---
Author Organization [facility] Address [address] [place] [address] Care Team Providers Care Price Accuracy Supervisor Name Role Phone Max Carnes MD Primary Care Provider Unav ailable Encounter Details Date Type Department Care Team (Late st Contact Info) Description 04/16/2017 Historical Results Only [facility] Lab - [address] [place] [address] [place], [place] [id number] Brenton Morgan MD [address] [place] [address] [address] [place] [address] Social History Tobacco Use Types [...] Procedure Name Priority Date/Time Associated Diagnosis Comments SURGICAL PATHOLOGY Routine 04/16/2017 documented in this encounter Results * SURGICAL PATHOLOGY (04/16/2017) 04/16/2017 04/16/2017 16: 17 EDT Narrative [facility] - 04/18/2017 10:35 EDT ----- ------- Name: PPIO VARNER ?: [birth year] ?Age/Sex: 63/M ?Unit#: [id number] ? Loc: END ? Status: REG CLI ?? Reg Date: 04/16/17 ? Pt.Phone Number: ? ----- ------- Specimen: [id number] ? STATUS: SOUT ?Spec Date:04/16/17 ? Physician Copies: ?Brenton Morgan MD ? Tissues: A ?? Endoscopy specimen (COLON @ 20 CM) ? Max Carnes ?? CPT: 10415 ?? Units: ??1 ?FINAL DIAGNOSIS ? COLON, 20 CM, POLYP, BIOPSY; ? -Fragments of tubular adenoma and hyperplastic polyp ? GROSS DESCRIPTION ? Received in formalin labeled with the patient's name and 20 cm colon polyp ? are three mucosal tissue fragments ranging in size from 0.4 to 0.5 cm. es 1 KF ?? PREOP DX/CLINICAL HISTORY ?Screening colonoscopy Signed ____(signature on file)____ JasenStephanigrey Hurtado 04/18/17 ? By the signature above, the attending physician certifies that he/she has personally conducted a gross and/or microscopic examination of the described specimens and rendered or confirmed the above diagnosis. Test Performed by [facility], [address] [place] [address] Certified Lactation Counselor: Mary Quach MD PHD ----- ------- Brenton Morgan MD PATHOLOGY ORDERABLES [facility] documented in this encounter Visit Diagnoses Not on filedocumented in this encounter Care Teams Price Accuracy Supervisor Relationship Specialty Start Date End Date Max Carnes MD PCP - General 07/26/15 05/07/24 documented as of this encounter
--- OUTSIDE RECORDS SUMMARY | 2024-07-20 09:53 | XMS_ITS | Encounter Summary ---
Author Organization [facility] Address [address] [place] [address] Care Team Providers Care Electro Mechanical Engineer Name Role Phone Linda Do Primary Care Provider [phone] Reason for Referral * Consult (Urgent) - Authorization Not Required Specialty Diagnoses / Procedures Referred By Rishabh echavarria Referred To Contact Orthopaedic Sports Medicine Diagnoses Acute pain of right knee Ana Pedraza NP [address] [facility] [address] [place] [id number] Referral ID Status Reason Start Date Expiration Date Visits Requested Visits Authorized [id number] Authorization Not Required Patient Preference 4 1 1 Question Answer Reason for Request: acute right knee pain SITE [facility] Orthopedics Comments Pt is current patient Reason for Visit * Reason Comments Knee Pain Pt presents w/ 3 day s of atraumatic right knee pain. Pain is diffuse & exacerbated by weight bearing. No redness or swelling. No hx gout, DVT. Encounter Details Date Type Department Care Team (Late st Contact Info) Description 05/08/2024 7:39 EDT - 05/08/2024 12:47 EDT Emergency [facility] Emergency Department [address], [place] [id number] Elliott Mancuso MD [address] [place] [phone] Acute pain of right knee (Primary Dx) Discharge Disposition: Home or Self Care Social [...] EDT Inhaled Oxygen Concentration - - Weight - - Height - - Body Mass Index - - documented in this encounter Functional Status Functional Status Response Date of Assess ment Are you deaf or do you have serious difficulty h earing? No 05/08/2024 documented as of this encounter Discharge Instructions * Discharge Instructions* Ana Pedraza NP - 05/08/2024 12:28 EDT You were seen today in the emergency department for right knee pain. We performed blood work as well as a knee x-ray. Your blood work did not show signs of infection. The x-ray of your knee showed noacute fracture, but did reveal mild knee arthrosis, which is [id number] of the joint. It also showed findings of prior David-Schlatter's disease, a condition that can occur in adolescence when you have a growth spurt. It is characterized by a painful lump below the kneecap. Again, the x-ray showed that you had this condition in the past. Part of your blood work included testing for tickborne diseases. Your Lyme test returned negative. We also tested you for other tickborne diseases called anaplasmosis and babesiosis. These results will not be back for couple days. You will only receive a phone call if they are positive. Here in the emergency department you received 15 mg of a medication called ketorolac. This is in the same class as ibuprofen or aleve. You also received 1000 mg of acetaminophen. We contacted orthopedics to ask whether they recommend we attempt to draw fluid off your knee for analysis. They agree that since you are able to bear weight on the joint and he has good range of motion, this is not necessary today. Orthopedics recommended we apply an Cuong wrap and make a referral to their service. I attempted to place a referral to [facility] as you requested. I marked this referral urgent. In case this does not go through, here is their phone number: I double checked the dosing on your Aleve, and you can take up to 500 mg every 12 hours. Please double check the bottle of medication you are taking. You may also add acetaminophen to your regimen. You can take up to 1000 mg of acetaminophen every 6 hours as needed. You can alternate this with the Aleve for better coverage. Elevating the knee above the level of the heart may help with your swelling and pain. The Cuong wrap should also help with the swelling. You can loosen or move the Cuong wrap as desired. You can also apply ice to the joint for comfort. Please return to the emergency department if signs of infection develop such as significantly increased swelling of the joint, increased redness, red streaking up or down the leg, fever over 100 ??F,or if you develop any other symptoms you feel warrant emergency care. documented in this encounter Medications at Time [...] Discharge Disposition Disposition Code Departure Means Destination Comment s Home or Self Mcfp documented in this encounter ED Notes * Mell Mays RN - 05/08/2024 1210 EDT RN at bedside, MD and DISH CARRIER made aware of patient wanting to leave * Mell Mays RN - 05/08/2024 1159 EDT Awaiting ortho [facility] at [facility] time * Mell Mays RN - 05/08/2024 0952 EDT Pt resting, all needs met * Mell Mays RN - 05/08/2024 0841 EDT Right knee repositioned and ice pack appliked * Mell Mays RN - 05/08/2024 0840 EDT Blood drawn via saline lock per protocol, purple and yellow tube(s) sent to lab per order. * Ana Pedraza NP - 05/08/2024 0730 EDT Emergency Department Visit Medical Decision Making Relevant Data as of 05/08/24 1754 SatMay 08, 2024 0939 C-Reactive Protein: 6.2 [DB] 0939 WBC: 7.24 [DB] 0956 I reviewed this case with the Advanced Practice Provider. I personally made/approved the management plan for this patient and take responsibility for the patient management. I evaluated this patient [id number] and provided a substantive portion of the patient's care. My personal evaluation included a face to face history and physical exam, review of vital signs, reviewof relevant records, and review of diagnostic data. Based on all of these elements I formulated, and/or participated substantively in the medical decision making, including assessing the level of risk of the patient's complaints and condition, establishing a diagnosis and/or selecting management options. [DB] 0957 XR knee independently interpreted, no significant effusion, or acute fracture [DB] 1129 Orthopedic surgery consulted, scrubbed into OR, will call back shortly [DB] 1754 Lyme Ab IgG: Negative [PHIL] 1753 Lyme Antibody, IgM: Negative [PHIL] Relevant Data User Index [DB] Elliott Mancuso MD [PHIL] Ana Pedraza NP Medical Decision Making Gage Chavez is a 68 y.o. male who presents to the ED for right knee pain that spontaneously onset3 days ago. Physical exam reveals a pleasant and cooperative elderly male. He is in no acute distress and is well-appearing. There is very minimal diffuse edema present to the right knee. The skin is intact. There is no crepitus and he has full range of motion. There is diffuse circumferential tenderness around the knee joint. The knee is not warm or reddened. Vital signs within normal limits aside from mildhypertension and bradycardia. CBC, CRP, CMP, knee x-ray, and tick panel were ordered. The patient received 1000 mg of acetaminophen p.o. as well as 15 mg of Toradol IV. X-ray of the right knee revealed no acute fracture, mild knee arthrosis, and findings of prior [place]-Schlatter's disease. CRP returned within normal limits as did WBCs. His Lyme testing returned negative. Dr. Mancuso contacted orthopedics to discuss whether an arthrocentesis was indicated. Given that the patient is able to bear weight on the leg, ROM is normal, and his laboratory workup is reassuring, they did not feel this was indicated at this time. They recommended applying an Cuong wrap and a referralto orthopedics. An Cuong wrap was applied to the leg. Ultimately the patient was discharged in stablecondition with a referral to [facility], where he is presently a patient per his preference. He was advised that he may take acetaminophen in addition to his Aleve for pain and apply ice to the area. He was advised to elevate the knee above the level of the heart to help with pain and swelling. Return precautions were reviewed. Please see discharge instructions for full details. At the time of discharge, the patient's Anaplasma and Babesia testing are still pending. He was notified that he will only receive a phone call if either of these are positive. Problems Addressed: Acute pain of right knee: complicated acute illness or injury Amount and/or Complexity of Data Reviewed Labs: ordered. Decision-making details documented in ED Course. Radiology: ordered. Risk OTC drugs. Prescription drug management. Final diagnoses: Acute pain of right knee Disposition: Discharged Chief complaint: Right knee pain HPI Gage Chavez is a 68 y.o. male who presents to the ED for right knee pain. Gage states that his right knee started to become painful about 3 days ago. Initially this pain was mild, however now it isextremely painful to weight-bear. At rest, Gage rates the pain at a 0/10, but when he is weightbearing, the pain jumps up to a 9/10. Other aggravating factors include things such as rolling around inbed. He has been taking Aleve and applying Voltaren cream to the knee, however these do not seem totouch the pain. There was no traumatic event prior to the onset of the pain. He has not fallen or bumped the knee. Gage has the sensation that there is swelling in the knee, however, does not visiblyidentify this. Particularly when squatting, he states the knee feels very tight. Gage denies any catching or clicking. He says that the pain started to radiate down the leg toward his foot last night, which combined with the significant pain with ambulation, his led him to seek care in the emergency department. Otherwise, Gage states he has been feeling well. He has not been febrile or felt ill. He states that he does spend a significant amount of time outside and often pulls ticks off himself.He notes there to be a bug bite on his right lateral torso, but denies any other rashes or skin changes. He denies history of gout. He states he does have a torn meniscus in the left knee, and they did identify a small amount of arthritis in that knee, but he states the pain is much worse in his right knee and he would guess that if there was arthritis, it was minimal similar to the left. History was provided by: Patient Patient's pertinent PMH, FH, SH were reviewed and edited as necessary. Nursing notes reviewed. A medical screening exam was performed. Physical Exam BP (!) 133/93 (BP Cuff Location: Left arm, BP Patient Position: Sitting) Pulse 54 Temp 36.8 ??C(98.3 ??F) (Oral) Resp 16 SpO2 98% Physical Exam Constitutional: General: He is not in acute distress. Appearance: Normal appearance. Cardiovascular: Rate and Rhythm: Normal rate and regular rhythm. Pulmonary: Effort: Pulmonary effort is normal. Breath sounds: Normal breath sounds. Abdominal: General: Abdomen is flat. Musculoskeletal: Right knee: Swelling (Minimal diffuse edema) present. No lacerations (skin intact) or crepitus. Normal range of motion. Tenderness (Circumferential, diffuse tenderness around the knee join) present. Comments: No erythema or warmth to right knee Skin: General: Skin is warm and dry. Neurological: General: No focal deficit present. Mental Status: He is alert and oriented to person, place, and time. Psychiatric: Mood and Affect: Mood normal. Behavior: Behavior normal. Thought Content: Thought content normal. Judgment: Judgment normal. XR KNEE RIGHT 4 OR MORE VIEWS IMPRESSION 1. No acute fracture. 2. Mild knee arthrosis. 3. Findings of prior David-Schlatter's disease. Procedures Procedures documented in this encounter Plan of Treatment Scheduled Referrals Name Type Priority Associated Diagnoses Order Schedule AMB CONS/FOLLOW UP ORTHOPEDICS - EXTERNAL Outpatient Referral Urgent Acute pain of right knee Expected: 05/10/2024 (Approximate), Expires: 05/08/2025 documented as of this encounter Procedures Procedure Name Priority Date/Time Associated Diagnosis Comments ANAPLASMA AND BABESIA TESTING BY PCR Routine 05/08/2024 9:46 EDT XR KNEE RIGHT 4 OR MORE VIEWS STAT 05/08/2024 8:55 EDT LYME AB SCREEN, IGG AND IGM STAT 05/08/2024 8:31 EDT COMPLETE BLOOD COUNT AND DIFFERENTIAL STAT 05/08/2024 8:31 EDT C REACTIVE PROTEIN STAT 05/08/2024 8: 31 EDT COMPREHENSIVE METABOLIC PANEL (CMP) STAT 05/08/2024 8:31 EDT documented in this encounter Results * ANAPLASMA AND BABESIA TESTING BY PCR (05/08/2024 9:46 EDT) Anaplasma phagocytophilum Negative Negative 05/09/2024 11:16 EDT [facility] Babesia Species Negative Negative 11:16 EDT [facility] Blood VENOUS BLOOD / Unknown Venipuncture / Unknown 05/08/2024 9:46 EDT 05/08/2024 9:49 EDT Narrative [facility] - 05/09/2024 11:16 EDT This test was developed and its performance characteristics determined by [facility]. It has not been cleared or [...] MD CHEMISTRY & BLOOD GA S ORDERABLES Performing Organization Address City/State/[facility] Co de Phone Number [facility] [address] [place] [phone] * XR KNEE RIGHT 4 OR MORE VIEWS (05/08/2024 8:55 EDT) Anatomical Region Laterality Modality Lower Extremities Right Computed Radio graphy 05/08/2024 9:06 EDT Impressions 05/08/2024 9:06 EDT 1. No acute fracture. 2. Mild knee arthrosis. 3. Findings of prior David-Schlatter's disease. [id number] Narrative 05/08/2024 9:06 EDT XR KNEE RIGHT 4 OR MORE VIEWS ?? Signs and Symptoms/Comments: ??right knee pain Comparison: None FINDINGS: Right knee: 4 views. Bones: No acute fracture or malalignment. Degenerative changes: Mild narrowing of the medial tibiofemoral compartment joint space. Suspect mild patellofemoral narrowing. Chronic irregularity of the tibial tuberosity, compatible with remote David-Schlatter's disease. No significant knee joint effusion. Soft tissues: Unremarkable. Resulting Agency Comment [id number] Procedure Note Chester Rodríguez MD - 05/08/2024 [...] Mild knee arthrosis. 3. Findings of prior David-Schlatter's disease. [id number] Ana Pedraza NP IMG DIAGNOSTIC IMAG ING ORDERABLES * LYME AB SCREEN, IGG AND IGM (05/08/2024 8:31 EDT) Lyme Antibody, IgG Negative Negative 05/08/2024 11:03 EDT [facility] Lyme Antibody, IgM Negative Negative 05/08/2024 11:03 EDT [facility] Blood VENOUS BLOOD / Unknown Venipuncture / Unknown 05/08/2024 8:31 EDT 05/08/2024 8:38 EDT Ana Pedraza NP IMMUNOLOGY AND SERO LOGY ORDERABLES Performing Organization Address City/[facility] Co de Phone Number [facility] [address] [place] [address] * C REACTIVE PROTEIN (05/08/2024 8:31 EDT) C-Reactive Protein 6.2 <10.0 mg/L 05/08/2024 9:08 EDT [facility] Blood VENOUS BLOOD / Unknown Venipuncture / Unknown 05/08/2024 8:31 EDT 05/08/2024 8:38 EDT Ana Pedraza NP CHEMISTRY & BLOOD G ORDERABLES [facility] [address] [place] [address] * (ABNORMAL) COMPREHENSIVE METABOLIC PANEL (CMP) (05/08/2024 8:31 EDT) Sodium 141 136 - 145 mmol/L 05/08/2024 9:08 [facility] Potassium 4.6 3.5 - 5.0 mmol/L 05/08/2024 9:08 [facility] Chloride 107 96 - 110 mmol/L 05/08/2024 9:08 [facility] CO2 Total 25 22 - 32 mmol/L 05/08/2024 9:08 [facility] Glucose 126(H) 70 - 99 mg/dl 05/08/2024 9:08 [facility] BUN 17 10 - 26 mg/dL 05/08/2024 9:08 [facility] Creatinine 0.94 0.66 - 1.25 mg/dL 05/08/2024 9:08 [facility] eGFR 87 >60 mL/min/1.7 3m2 05/08/2024 9:08 [facility] Total Protein 6.7 6.3 - 8.2 g/dL 05/08/2024 9:08 [facility] Albumin 4.0 3.4 - 4.9 g/dL 05/08/2024 9:08 [facility] Alkaline Phosphatase 46 38 - 126 U/L 05/08/2024 9:08 [facility] AST 25 15 - 46 U/L 05/08/2024 9:08 [facility] ALT 17 <50 U/L 05/08/2024 9:08 [facility] Bilirubin, Total 0.6 <1.4 mg/dL 05/08/20 9:08 [facility] Calcium 9.1 8.5 - 10.5 mg/dL 05/08/2024 9:08 [facility] Albumin/Globulin Ratio 1.5 1.0 - 2.5 05/08/2024 9:08 [facility] Anion Gap 9 5 - 14 mmol/L 05/08/2024 9:08 [facility] Blood VENOUS BLOOD / Unknown Venipuncture / Unknown 05/08/2024 8:31 EDT 05/08/2024 8:38 EDT Ana Pedraza NP CHEMISTRY & BLOOD G ORDERABLES [facility] [address] [place] [address] * (ABNORMAL) COMPLETE BLOOD COUNT AND DIFFERENTIAL (05/08/2024 8:31 EDT) WBC 7.24 4.00 - 10.40 K/cmm 05/08/2024 8:49 [facility] RBC 5.50 4.36 - 5.78 M/cmm 05/08/2024 8:49 [facility] Hemoglobin 15.3 13.8 - 17.3 g/dL 05/08/2024 8:49 [facility] HCT 46.8 39.5 - 50.2 % 05/08/2024 8:49 [facility] MCV 85 81 - 95 fL 05/08/2024 8:49 [facility] MCH 27.8 27.6 - 33.0 pg 05/08/2024 8:49 [facility] MCHC 32.7(L) 32.8 - 36.4 g/dL 05/08/2024 8:49 [facility] RDW-CV 13.6 <14.2 % 05/08/2024 8:49 [facility] RDW-SD 42.6 <46.0 fl 05/08/2024 8:49 [facility] PLT 217 141 - 377 K/cmm 05/08/2024 8:49 [facility] MPV 8.9(L) 9.5 - 12.7 fL 05/08/2024 8:49 [facility] % Neutrophils 71.1 % 05/08/2024 8:49 [facility] % Lymphocytes 19.6 % 05/08/2024 8:49 [facility] % Monocytes 7.2 % 05/08/2024 8:49 [facility] % Eosinophils 1.1 % 05/08/2024 8:49 [facility] % Basophils 0.7 % 05/08/2024 8:49 [facility] % Immature Grans 0.3 <0.9 % 05/08/20 8:49 [facility] Absolute Neutrophils 5.15 2.20 - 8.85 K/cmm 05/08/2024 8:49 [facility] Absolute Lymphocytes 1.42 1.09 - 3.30 K/cmm 05/08/2024 8:49 [facility] Absolute Monocytes 0.52 0.10 - 0.80 K/cmm 05/08/2024 8:49 [facility] Absolute Eosinophils 0.08 0.03 - 0.61 K/cmm 05/08/2024 8:49 [facility] ABS Basophils 0.05 0.01 - 0.11 K/cmm 05/08/2024 8:49 [facility] Absolute Immature Grans 0.02 0.00 - 0.06 K/cmm 05/08/2024 8:49 [facility] Type of Differential: Auto 05/08/2024 8:49 [facility] Blood VENOUS BLOOD / Unknown Venipuncture / Unknown 05/08/2024 8:31 EDT 05/08/2024 8:38 EDT Ana L Cotnoir DISH CARRIER PACKAGES & DNA PROB E ORDERABLES [facility] [address] [place] [address] documented in this encounter Visit Diagnoses Diagnosis Acute pain of right knee- Primary documented in this encounter Administered Medications Inactive Administered Medications - up to 3 most recent administrations Medication Order MAR Action Action Date Dose Rate Site acetaminophen (TYLENOL) tablet 975 mg 975 mg (rounded from 1,000 mg), oral, NOW X1, 1 dose, On Sat05/08/24 at 0845, STAT Given 05/08/2024 8:30 EDT 975 mg ketOROLAC (TORADOL) injection 15 mg 15 mg, intravenous, NOW X1, 1 dose, On Sat05/08/24 at 0845, STAT Given 05/08/2024 8:30 EDT 15 mg documented in this encounter Active and Recently Administered Medications Times are shown in EDT. Scheduled Medication Order 05/06/2024 05/07/2024 05/08/2024 acetaminophen (TYLENOL) tablet 975 mg (COMPLETED) 975 mg (rounded from 1,000 mg), oral, NOW X1, 1 dose, On Sat05/08/24 at 0845, STAT 0830 (Given - Provid er: Mell Mays RN) ketOROLAC (TORADOL) injection 15 mg (COMPLETED) 15 mg, intravenous, NOW X1, 1 dose, On Sat05/08/24 at 0845, STAT 0830 (Given - Provid er: Mell Mays RN) documented in this encounter Orders Nursing Count Last Ordered Date First Orde red Date CALL PHYSICIAN SPECIALTY CONSULT 05/08/20 documented in this encounter Care Teams Electro Mechanical Engineer Relationship Specialty Start Date End Date Linda Do [address] [place] [id number] PCP - General Internal Medicine - Primary Care 05/08/24 documented as of this encounter
--- OUTSIDE RECORDS SUMMARY | 2024-07-20 09:53 | XMS_ITS | Referral Summary ---
Author Organization [facility] Address [address] [place] [address] Care Team Providers Care Mental Health Worker Name Role Phone Linda Do Primary Care Provider [phone] Encounters Date Type Department Care Team Description 05/08/2024 7:39 EDT - 05/08/2024 12:47 EDT Emergency [facility] Emergency Department [address] [place] [address] Elliott Mancuso MD Acute pain of right knee (Primary Dx) Discharge Disposition: Home or Self Care from Last 3 Months Allergies No known active allergies Medications Medication [...] Diagnosed Date Asymmetrical left sensorineural hearing loss Social History [...] 15:14 EDT Sexual Orientation Not on file Last Filed Vital Signs Vital Sign Reading [...] Body Mass Index 42.76 08/15/2022 0958 EST Functional Status Functional Status Response Date of Assess ment Are you deaf or do you have serious difficulty h earing? No 05/08/2024 Plan of Treatment Not on file Procedures Procedure Name Priority Date/Time Associated Diagnosis [...] Anaplasma phagocytophilum Negative Negative 05/09/2024 11:16 EDT [facility] Babesia Species Negative Negative 11:16 EDT [facility] Blood VENOUS BLOOD / Unknown Venipuncture / Unknown 05/08/2024 9:46 EDT 05/08/2024 9:49 EDT Narrative [facility] - 05/09/2024 11:16 EDT This test was developed and its performance characteristics determined by [facility]. It has not been cleared or [...] MD CHEMISTRY & BLOOD GA S ORDERABLES [facility] [address] [place] [address] * XR KNEE RIGHT 4 OR MORE VIEWS (05/08/2024 8:55 EDT) Anatomical Region Laterality Modality Lower Extremities Right Computed Radio graphy 05/08/2024 9:06 EDT Impressions 05/08/2024 9:06 EDT 1. No acute fracture. 2. Mild knee arthrosis. 3. Findings of prior David-Schlatter's disease. [id number] Narrative 05/08/2024 9:06 EDT XR KNEE RIGHT [...] effusion. Soft tissues: Unremarkable. Resulting Agency Comment [id number] Procedure Note Chester Rodríguez MD - 05/08/2024 [...] arthrosis. 3. Findings of prior David-Schlatter's disease. [id number] Ana Pedraza NP IMG DIAGNOSTIC IMAG ING ORDERABLES * LYME AB SCREEN, IGG AND IGM (05/08/2024 8:31 EDT) [facility] Lyme Antibody, IgG Negative Negative [facility]24 [facility] Lyme Antibody, IgM Negative Negative 05/08/2024 11:03 [facility] Blood VENOUS BLOOD / Unknown Venipuncture / Unknown 05/08/2024 8:31 EDT 05/08/2024 8:38 EDT Ana Pedraza NP IMMUNOLOGY AND SERO LOGY ORDERABLES Performing Organization Address City/State/[facility] Co de Phone Number [facility] [address] [place] [address] * (ABNORMAL) COMPLETE BLOOD COUNT AND DIFFERENTIAL (05/08/2024 8:31 EDT) [facility] WBC 7.24 4.00 - 10.40 K/cmm 05/08/2024 8:49 [facility] RBC 5.50 4.36 - 5.78 M/cmm 05/08/2024 8:49 [facility] Hemoglobin 15.3 13.8 - 17.3 g/dL 05/08/2024 8:49 [facility] HCT 46.8 39.5 - 50.2 % 05/08/2024 8:49 [facility] MCV 85 81 - 95 fL 05/08/2024 8:49 [facility] MCH 27.8 27.6 - 33.0 pg 05/08/2024 8:49 [facility] MCHC 32.7(L) 32.8 - 36.4 g/dL 05/08/2024 8:49 [facility] RDW-CV 13.6 <14.2 % 05/08/2024 8:49 [facility] RDW-SD 42.6 <46.0 fl 05/08/2024 8:49 [facility] PLT 217 141 - 377 K/cmm 05/08/2024 8:49 [facility] MPV 8.9(L) 9.5 - 12.7 fL 05/08/2024 8:49 [facility] % Neutrophils 71.1 % 05/08/2024 8:49 [facility] % Lymphocytes 19.6 % 05/08/2024 8:49 [facility] % Monocytes 7.2 % 05/08/2024 8:49 [facility] % Eosinophils 1.1 % 05/08/2024 8:49 [facility] % Basophils 0.7 % 05/08/2024 8:49 [facility] % Immature Grans 0.3 <0.9 % 05/08/20 8:49 [facility] Absolute Neutrophils 5.15 2.20 - 8.85 K/cmm 05/08/2024 8:49 [facility] Absolute Lymphocytes 1.42 1.09 - 3.30 K/cmm 05/08/2024 8:49 [facility] Absolute Monocytes 0.52 0.10 - 0.80 K/cmm 05/08/2024 8:49 [facility] Absolute Eosinophils 0.08 0.03 - 0.61 K/cmm 05/08/2024 8:49 [facility] ABS Basophils 0.05 0.01 - 0.11 K/cmm 05/08/2024 8:49 [facility] Absolute Immature Grans 0.02 0.00 - 0.06 K/cmm 05/08/2024 8:49 [facility] Type of Differential: Auto 05/08/2024 8:49 EDT [facility] Blood VENOUS BLOOD / Unknown Venipuncture / Unknown 05/08/2024 8:31 EDT 05/08/2024 8:38 EDT Ana L Cotnoir CLINICAL RESEARCH SCIENTIST PACKAGES & DNA PROB E ORDERABLES Performing Organization Address City/[facility]/ZIP Co de Phone Number [facility] [address] [place] [address] * C REACTIVE PROTEIN (05/08/2024 8:31 EDT) C-Reactive Protein 6.2 <10.0 mg/L 05/08/2024 9:08 [facility] Blood VENOUS BLOOD / Unknown Venipuncture / Unknown 05/08/2024 8:31 EDT 05/08/2024 8:38 EDT Ana L Cotnoir CLINICAL RESEARCH SCIENTIST CHEMISTRY & BLOOD G ORDERABLES Performing Organization Address City/[facility]/ZIP Co de Phone Number [facility] [address] [place] [address] * (ABNORMAL) COMPREHENSIVE METABOLIC PANEL (CMP) (05/08/2024 8:31 EDT) Sodium 141 136 - 145 mmol/L 05/08/2024 9:08 [facility] Potassium 4.6 3.5 - 5.0 mmol/L 05/08/2024 9:08 [facility] Chloride 107 96 - 110 mmol/L 05/08/2024 9:08 [facility] CO2 Total 25 22 - 32 mmol/L 05/08/2024 9:08 [facility] Glucose 126(H) 70 - 99 mg/dl 05/08/2024 9:08 [facility] BUN 17 10 - 26 mg/dL 05/08/2024 9:08 [facility] Creatinine 0.94 0.66 - 1.25 mg/dL 05/08/2024 9:08 [facility] eGFR 87 >60 mL/min/1.7 3m2 05/08/2024 9:08 [facility] Total Protein 6.7 6.3 - 8.2 g/dL 05/08/2024 9:08 [facility] Albumin 4.0 3.4 - 4.9 g/dL 05/08/2024 9:08 [facility] Alkaline Phosphatase 46 38 - 126 U/L 05/08/2024 9:08 [facility] AST 25 15 - 46 U/L 05/08/2024 9:08 [facility] ALT 17 <50 U/L 05/08/2024 9:08 [facility] Bilirubin, Total 0.6 <1.4 mg/dL 05/08/20 9:08 [facility] Calcium 9.1 8.5 - 10.5 mg/dL 05/08/2024 9:08 [facility] Albumin/Globulin Ratio 1.5 1.0 - 2.5 05/08/2024 9:08 [facility] Anion Gap 9 5 - 14 mmol/L 05/08/2024 9:08 [facility] Blood VENOUS BLOOD / Unknown Venipuncture / Unknown 05/08/2024 8:31 EDT 05/08/2024 8:38 EDT Ana Pedraza NP CHEMISTRY & BLOOD G ORDERABLES [facility] [address] [place] [address] * COLONOSCOPY (08/15/2022 10:30 EST) Anatomical Region Laterality Modality Endoscopy Narrative 08/15/2022 10:30 EST [facility] ?? [address] [place] [id number] ?? Patient Name ?GAGE VARNER Date of ?1955 Record Number ?[id number] Date/Time of Procedure ?08/15/2022, 10:30:00 AM Endoscopist ?Brenton Morgan ?? Labor And Delivery Nurse ? Referring Physician(s) ?? Max Carnes Dr. Anesthesiologist ? Procedure Performed: COLONOSCOPY Indications for Exam: History of colon polyps Instruments: ? [id number] ([id number]) Medications: ?Fentanyl 75 mcg, Versed ??5 mg [...] during withdrawal. I personally was in continuous [id number] attendance with the patient during the administration [...] End: 11:43:12 AM Signature: Brenton Morgan M.D., Shola This note was electronically signed on 08/15/2022 11:44:52 AM By Brenton Morgan M.D., Shola Linda Do GI PROCEDURE ORDERAB LES from Last 3 Months or Most Recently Relevant to Health Maintenance Care Teams Mental Health Worker Relationship Specialty Start Date End Date Linda Do [address] [place] [address] PCP - General Internal Medicine - Primary Care 05/08/24
--- OUTSIDE RECORDS SUMMARY | 2024-07-20 09:53 | XMS_ITS | Encounter Summary ---
Author Organization [facility] Address [address] [place] [address] Care Team Providers Care Bakery Sales Clerk Name Role Phone Max Carnes MD Primary Care Provider Linda Bartholomew Primary Care Provider [phone] Encounter Details Date Type Department Care Team (Late st Contact Info) Description 07/01/2021 Lab Requisition [facility] Pathology & Laboratory Medicine - [address] [address] Outr Resulting Lab, Provider Social History Tobacco [...] Associated Diagnosis Comments PSA TOTAL, DIAGNOSTIC Routine 06/30/2021 13:35 EDT documented in this encounter Results * PSA TOTAL, DIAGNOSTIC (06/30/2021 13:35 EDT) PSA 1.9 0.0 - 4.5 ng/mL 07/03/2021 9:27 EDT [facility] Blood VENOUS BLOOD / Unknown 06/30/2021 13:35 EDT 07/01/2021 21:53 EDT Narrative [facility] - 07/03/2021 9:27 EDT NOTE: Serum PSA concentration should not be interpreted as absolute evidence for the presence or absence of malignant disease. Assayed on Siemens ADVIA zumatekaur XPT using chemiluminescent technology.??Values obtained by using different assay methods cannot be used interchangeably. Provider Outr Resulting Lab CHEMISTRY & BLOOD GAS ORDERABLES [facility] [address] [place] [address] documented in this encounter Visit Diagnoses Not on filedocumented in this encounter Care Teams Bakery Sales Clerk Relationship Specialty Start Date End Date Max Carnes MD PCP - General 07/26/15 05/07/24 Linda Do [address] [place] [address] PCP - General Internal Medicine - Primary Care 05/08/24 documented as of this encounter
--- OUTSIDE RECORDS SUMMARY | 2024-07-20 09:53 | XMS_ITS | Encounter Summary ---
Author Organization [facility] Address [address] [place] [id number] Care Team Providers Care Relay Motorman Name Role Phone Max Carnes MD Primary Care Provider Unav ailable Encounter Details Date Type Department Care Team (Late st Contact Info) Description 01/07/[address] [address] Max Carnes MD Social History Tobacco Use Types Packs/Day Years Used Date Smoking Tobacco: Never Assessed Sex and Gender Information Value Date Recorded Sex Assigned at Not on file Gender Identity Male 07/16/2022 15:14 EDT Sexual Orientation Not on file documented as of this encounter Plan of Treatment Not on file documented as of this encounter Visit Diagnoses Not on filedocumented in this encounter Historical Medications * This list may reflect changes made after this encounter. Medication Sig Dispensed Refills Start Date End Date tadalafiL (CIALIS) 5 mg tablet Take 5 mg by mouth daily. added in this encounter Care Teams Relay Motorman Relationship Specialty Start Date End Date Max Carnes MD PCP - General 07/26/15 05/07/24 documented as of this encounter
[2024-07-20 14:16] LABS: Abs Immature Grans 0.02 10^3/uL (0.0-0.06); Absolute Basophil Count 0.05 10^3/uL (0.0-0.2); Absolute Eosinophil Count 0.11 10^3/uL (0.0-0.7); Absolute Monocyte Count 0.49 10^3/uL (0.1-0.8); Absolute Neutrophil Count 4.74 10^3/uL (1.2-6.7); Basophils % 0.7 %; Eosinophils % 1.6 %; HCT 48.3 % (40.0-50.0); HGB 15.9 g/dL (13.5-17.5); Immature Grans % 0.3 %; Lymphocytes % 21.7 %; MCH 28.5 pg (27.0-33.0); MCHC 32.9 % (32.0-36.0); MCV 87 fL (80-95); MPV 9.2 fL (8.0-11.0); Monocytes % 7.1 %; Neutrophils % 68.6 %; Platelet Count 219 10^3/uL (130-400); RBC 5.57 10^6/uL (4.36-5.78); RDW 13.7 % (11.8-14.1); RDW-SD 43.9 fL; WBC 6.91 10^3/uL (4.4-10.8)
[2024-07-20 14:40] LABS: ALT 25 U/L (16-63); AST 24 U/L (15-37); Albumin 3.8 g/dL (3.4-5.0); Alkaline Phosphatase 52 U/L (46-116); Anion Gap 6.1 mmol/L (3-11); BUN 17 mg/dL (7-18); Bilirubin, Total 0.71 mg/dL (0.2-1.0); CO2 28.9 mmol/L (21.0-32.0); CREATININE 1.2 mg/dL (0.70-1.30); Calcium 9.1 mg/dL (8.5-10.1); Calculated LDL 77 mg/dL (<100); Chloride 109 mmol/L (98-107); Cholesterol 137 mg/dL (<200); Estimated GFR 64.65 (mL/min/1.73m2); Glucose 135 mg/dL (74-106); HDL Cholesterol 46 mg/dL (40-60); Potassium 4.9 mmol/L (3.5-5.1); Sodium 144 mmol/L (136-145); Total Protein 7.3 g/dL (6.4-8.2); Triglyceride 73 mg/dL (<150)
[2024-07-20 14:51] LABS: Hemoglobin A1C 5.7 % (<5.7)
== END 2024-07-20 09:51 | disposition home or self-care (01) ==
LOC: NCHCN 09:50
PROVIDERS: PCP Internal Medicine; Visit Provider Internal Medicine
DX: E66.9 Obesity, unspecified (principal); R73.03 Prediabetes
CPT/HCPCS: 80053; 80061; 83036; 85025

== ENCOUNTER 2025-07-15 10:11 | Outpatient (REF) | payer MEDICARE, SELFPAY ==
[2025-07-15 16:12] LABS: Anion Gap 6.2 mmol/L (3-11); BUN 16 mg/dL (7-18); CO2 28.8 mmol/L (21.0-32.0); Calcium 9.1 mg/dL (8.5-10.1); Chloride 105 mmol/L (98-107); Estimated GFR 64.25 (mL/min/1.73m2); Glucose 128 mg/dL (74-106); Potassium 4.9 mmol/L (3.5-5.1); Sodium 140 mmol/L (136-145)
[2025-07-15 16:17] LABS: Hemoglobin A1C 5.9 % (<5.7)
== END 2025-07-15 10:12 | disposition home or self-care (01) ==
LOC: NCHCN 10:11
PROVIDERS: PCP Internal Medicine; Visit Provider Internal Medicine
DX: R73.03 Prediabetes (principal)
CPT/HCPCS: 80048; 83036